=== PATIENT | male | born 1995 | race Caucasian/White ===

== ENCOUNTER 2017-06-28 15:47 | Emergency (ER) | payer MEDICAID ==
[2017-06-28] MEDS ORDERED: Sodium Chloride 0.9% 1,000 ML IV ONE (16:15)
[2017-06-28] MEDS ORDERED: Ondansetron 4 MG/2 ML SDV IVPUSH ONE (16:15)
--- NOTE | 2017-06-28 16:16 | EDM.PDOC ---
ED HPI GENERAL MEDICAL PROBLEM - General Chief Complaint: ENT Problem Stated Complaint: NOSE BLEED Time Seen by Provider: 06/28/17 16:10 Source of Information: Reports: Patient History Limitations: Reports: No Limitations - History of Present Illness INITIAL COMMENTS - FREE TEXT/NARRATIVE: HISTORY AND PHYSICAL: 22-year-old male complaining of sore throat, decreased appetite, and general fatigue for 2-3 days. History of Present Illness: 22-year-old male presents to the emergency room today with complaints of a sore throat, productive cough, decreased appetite mild abdominal pain, nausea, and general fatigue for the past 2-3 days. Reports he has progressively felt worse over the last couple days. Has not taken any [id number] products. States he had no appetite yesterday but has been trying to drink fluids. Reports having thick yellow phlegm when coughing. Denies any fever or chills. Denies any history of smoking. Review of Systems: As per history of present illness and below otherwise all systems reviewed and negative. Past medical history: As per history of present illness and as reviewed below otherwise noncontributory. Surgical history: As per history of present illness and as reviewed below otherwise noncontributory. Social history: No reported history of drug or alcohol abuse. Family history: As per history of present illness and as reviewed below otherwise noncontributory. Physical exam: Gen.: Nontoxic 22-year-old male. Able to speak in full sentences without shortness of breath. Alert and oriented. His questions appropriately HEENT: Atraumatic, normocehpalic, pupils reactive, negative for conjunctival pallor or scleral icterus, mucous membranes moist, throat clear, neck supple, nontender, trachea midline. Slightly enlarged lymph node tenderness interior cervical chain bilaterally. Lungs: Clear to auscultation, breath sounds equal bilaterally, chest non tender. Heart: S1S2, tachycardic, regular, negative for clicks, rubs, or JVD. Abdomen: Soft, nondistended, mild lower quadrant tenderness with palpation. Negative for masses or hepatossplenmegaly. Negative for costovertebral tenderness. Pelvis: Stable nontender. Genitourinary: Deferred. Rectal: Deferred Extremities: Atraumatic, moves all per self, negative for cords or calf pain. Skin: Intact, warm, and dry. No obvious lesions, sores, or masses. Neurovascular unremarkable. Neuro: Awake, alert, oriented. Cranial nerves II through XII unremarkable. Cerebellum unremarkable. Motor and sensory unremarkable throughout. Exam nonfocal. Diagnostics: [CBC, rapid strep, 1 view chest x-ray] Therapeutics: [IV fluids, Zofran] Impression: [Upper respiratory, viral] Plan: [1. Get plenty of rest and encourage oral fluid. 2. Take prednisone and Tessalon Perles as prescribed. 3. Follow-up with the primary care provider in one to 2 days.] Definitive disposition and diagnosis as appropriate pending reevaluation and review of above. Duration: Day(s): () Location: Reports: Abdomen, Other ([place]) Severity: Moderate Associated Symptoms: Reports: Chest Pain, cough w sputum, Nausea/Vomiting, Other (Fatigue) chest Pain Score (Numeric/FACES): 4 - Related Data Allergies Allergy/AdvReac Type Severity Reaction Status Date / Time grass pollen Allergy Other Verified 06/28/17 16:01 trees Allergy Other Uncoded 06/28/17 16:01 Home Meds: Home Meds Benzonatate [Tessalon Perles] 100 mg PO QID #40 cap 06/28/17 [Rx] Montelukast [Singulair] 10 mg PO DAILY 06/28/17 [History] methylPREDNISolone [Medrol] 4 mg PO ASDIRECTED #1 dospk 06/28/17 [Rx] Past Medical History Respiratory History: Reports: Asthma - Infectious Disease History Infectious Disease History: Reports: Chicken Pox Social & Family History - Family History Family Medical History: Noncontributory - Tobacco Use Smoking Status *Q: Never Smoker Second Hand Smoke Exposure: No - Caffeine Use Caffeine Use: Reports: Coffee, Soda - Recreational Drug Use Recreational Drug Use: No ED ROS GENERAL - Review of Systems Review Of Systems: ROS reveals no pertinent complaints other than HPI. ED EXAM, GENERAL - Physical Exam Exam: See Below (See dictation) Course - Vital Signs Last Recorded V/S: Last Vital Signs Temp 36.6 C 06/28/17 15:57 Pulse 121 H 06/28/17 15:57 Resp 16 06/28/17 15:57 BP 123/78 06/28/17 15:57 Pulse Ox 96 06/28/17 15:57 - Orders/Labs/Meds Orders: Active Orders 24 hr Category Date Time Status Chest 2V [CR] Stat Exams 06/28/17 16:15 Taken CULTURE STREP A CONFIRMATION [] Stat Lab 06/28/17 17:00 Results STREP SCRN A RAPID W CULT CONF [] Stat Lab 06/28/17 17:00 Results Labs: Laboratory Tests 06/28/17 Range/Units 16:25 WBC 8.33 (4.0-11.0) K/uL RBC 4.81 (4.50-5.90) M/uL Hgb 15.0 (13.0-17.0) g/dL Hct 42.3 (38.0-50.0) % MCV 87.9 (80.0-98.0) fL MCH 31.2 (27.0-32.0) pg MCHC 35.5 (31.0-37.0) g/dL RDW Std Deviation 40.3 (28.0-62.0) fl RDW Coeff of Dayanara 13 (11.0-15.0) % Plt Count 171 (150-400) K/uL MPV 10.00 (7.40-12.00) fL Neut % (Auto) 68.5 (48.0-80.0) % Lymph % (Auto) 16.1 (16.0-40.0) % [place] % (Auto) 11.6 (0.0-15.0) % Eos % (Auto) 3.4 (0.0-7.0) % Baso % (Auto) 0.4 (0.0-1.5) % Neut # (Auto) 5.7 (1.4-5.7) K/uL Lymph # (Auto) 1.3 (0.6-2.4) K/uL [place] # (Auto) 1.0 H (0.0-0.8) K/uL Eos # (Auto) 0.3 (0.0-0.7) K/uL Baso # (Auto) 0.0 (0.0-0.1) K/uL Nucleated RBC % 0.0 /100WBC Nucleated RBCs # 0 K/uL Meds: Medications Discontinued Medications Generic Name Dose Route Start Last Admin Trade Name Freq PRN Reason Stop Dose Admin Sodium Chloride 1,000 mls @ 999 mls/hr 06/28/17 16:15 06/28/17 16:53 Normal Saline IV 06/28/17 17:15 999 mls/hr STAT ONE Administration Ondansetron HCl 4 mg 06/28/17 16:15 06/28/17 16:53 Zofran IVPUSH 06/28/17 16:16 4 mg ONETIME ONE Administration Departure - Departure Time of Disposition: 17:19 Disposition: Home, Self-Care 01 Condition: Good Clinical Impression: Upper respiratory infection, viral - Discharge Information Prescriptions: Benzonatate [Tessalon Perles] 100 mg PO QID #40 cap methylPREDNISolone [Medrol] 4 mg PO ASDIRECTED #1 dospk Forms: ED Department Discharge Additional Instructions: The following information is given to patients seen in the emergency department who are being discharged to home. This information is to outline your options for follow-up care. We provide all patients seen in our emergency department with a follow-up referral. The need for follow-up, as well as the timing and circumstances, are variable depending upon the specifics of your emergency department visit. If you don't have a primary care physician on staff, we will provide you with a referral. We always advise you to contact your personal physician following an emergency department visit to inform them of the circumstance of the visit and for follow-up with them and/or the need for any referrals to a consulting specialist. The emergency department will also refer you to a specialist when appropriate. This referral assures that you have the opportunity for followup care with a specialist. All of these measure are taken in an effort to provide you with optimal care, which includes your followup. Under all circumstances we always encourage you to contact your private physician who remains a resource for coordinating your care. When calling for followup care, please make the office aware that this follow-up is from your recent emergency room visit. If for any reason you are refused follow-up, please contact the [facility] emergency department at and asked to speak to the emergency department charge nurse. [facility] [address] [place] [id number] [1. Get plenty of rest and encourage oral fluid. 2. Take prednisone and Tessalon Perles as prescribed. 3. Follow-up with the primary care provider in one to 2 days. - My Orders Last 24 Hours: My Active Orders 06/28/17 16:15 Chest 2V [CR] Stat 06/28/17 17:00 CULTURE STREP A CONFIRMATION [RM] Stat STREP SCRN A RAPID W CULT CONF [RM] Stat - Assessment/Plan Last 24 Hours: My Active Orders 06/28/17 16:15 Chest 2V [CR] Stat 06/28/17 17:00 CULTURE STREP A CONFIRMATION [RM] Stat STREP SCRN A RAPID W CULT CONF [RM] Stat
[2017-06-28 18:45] VITALS: BP 114/67
--- NOTE | 2017-06-29 10:09 | CR ---
EXAM DATE: 06/28/17 PATIENT'S AGE: 22 Patient: SON RYDER Facility: [place], [place] Site . Site : 1995 Study: XRay Chest [id number]/21/2017 4:51:41 PM Ordering Physician: Doctor Turcios Final Report: INDICATIONS: Pain. Shortness of breath. TECHNIQUE: Chest 2 view. COMPARISON: None FINDINGS: No pneumothorax, pleural effusion or airspace consolidation. Cardiac and mediastinal contours are within normal limits. Upper abdomen and osseous structures show no acute abnormality. IMPRESSION: No acute cardiopulmonary disease. Dictated by Shiva Sousa MD @ 06/28/2017 5:04:13 PM Dictated by: Shiva Sousa MD @ 06/28/2017 17:04:39 (Electronic Signature) Report Signed by Proxy. [facility]
== END 2017-06-28 17:25 | disposition home or self-care (01) ==
LOC: MW.ED 15:47
DX: J06.9 Acute upper respiratory infection, unspecified (principal); J45.909 Unspecified asthma, uncomplicated; Z79.899 Other long term (current) drug therapy; Z91.09 Other allergy status, other than to drugs and biological substances
CPT/HCPCS: 36415; 71020; 85025; 87081; 87880; 96361; 96374; 99284; J2405; J7040